=== PATIENT | female | born 1965 | race Caucasian/White ===

== ENCOUNTER → 2021-10-25 11:17 | Outpatient (BNVA) | payer OTHER, SELFPAY | DX: I10 Essential (primary) hypertension (principal); E78.5 Hyperlipidemia, unspecified; N39.0 Urinary tract infection, site not specified | CPT/HCPCS: 80053; 80061; 81000; 85025 ==

== ENCOUNTER → 2022-01-24 08:38 | Outpatient (BNVA) | payer OTHER, SELFPAY | PROVIDERS: PCP Clinical Nurse Specialist Adult Health; Visit Provider Clinical Nurse Specialist Adult Health | DX: E78.5 Hyperlipidemia, unspecified (principal); I10 Essential (primary) hypertension | CPT/HCPCS: 80061 ==

== ENCOUNTER 2022-04-20 04:21 | Emergency (ER) | payer OTHER, SELFPAY ==
[2022-04-20 04:23] VITALS: BP 161/110; PULSE 109; RESP 18; TEMP 37.3; O2SAT 97; BMI 29.7
--- NOTE | 2022-04-20 04:26 | W.ED.GENADLT ---
HPI - General Adult General: Chief complaint: Arrhythmia/Palpitations Stated complaint: PSVT Time Seen by Provider: 04/20/22 04:25 Source: patient and EMS Mode of arrival: EMS Limitations: no limitations History of Present Illness: 57-year-old female has a long history of SVT for over 25 years states that she started having palpitations tonight roughly 2 hours ago she states she tried to convert her self at home and was not able to she called EMS she was in SVT heart rate in the 180s they did give her 12 mg adenosine and she successfully converted in route she states she feels much improved she has no pain no shortness of breath denies any worsening improving factors. Associated symptoms: Reports palpitations; Deny dyspnea, headache(s), nausea, rash or vomiting Review of Systems Const: Denies: fever(s), chills, body aches or change in appetite Eyes: Denies: blurry vision or eye discomfort ENMT: Denies: throat pain or dental pain Card: Reports: palpitations Resp: Denies: dyspnea GI: Denies: abdominal pain, nausea, vomiting or diarrhea : Denies: dysuria Musc: Denies: neck pain or back pain Skin/Breast: Denies: rash Neuro: Denies: headache(s) Psych: Denies: depression Zain/Lymph: Denies: easy bruising All/Imm: Denies: urticaria PFSH ED PFSH: Medical History Essential hypertension Hyperlipidemia Major depression PSVT (paroxysmal supraventricular tachycardia) Surgical History Benign cyst of breast History of lipoma Family History Mother Degenerative arthritis Hypertension Hyperlipidemia Stroke mini strokes Father Cancer renal cancer with renal transplant Social History Smoking and tobacco status: never smoked Alcohol intake: current Alcohol intake frequency: 3 or more drinks per day Alcohol type: beer Marital status: Single 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 Additional social history: Moved here from [place], Has sibling and mother that lives herer Physical Exam Const: COMMON NORMALS: no acute distress, patient oriented x3 and healthy appearing HENMT: COMMON NORMALS: normocephalic and atraumatic HEAD & SCALP: normocephalic and atraumatic Eye: COMMON NORMALS: Equal, round and reactive pupils present and EOMs intact bilaterally PUPIL: Yes Equal, round and reactive pupils present Neck/C-Spine: COMMON NORMALS: full ROM and supple Chest: COMMONS NORMALS: normal inspection of the chest and normal palpation of entire chest wall Resp: COMMON NORMALS: normal respiratory effort, No retractions, No use of accessory muscles and clear to auscultation bilaterally AUSCULTATION: clear to auscultation bilaterally Cardio: COMMON NORMALS: regular rate, regular rhythm and No murmurs present (Cardio) RATE: regular rate RHYTHM: regular rhythm GI: COMMON NORMALS: Normal to inspection, nondistended, normoactive bowel sounds present, Soft to palpation, non-tender and no masses PALPATION: Yes Soft to palpation Extremity: COMMON NORMALS: normal to inspection and full ROM Neuro: COMMON NORMALS: patient oriented x3, moves all extremities and no focal motor deficits Psych: COMMON NORMALS: mental status grossly normal, Normal thought process present and cooperative THOUGHT PROCESS: Normal thought process present Skin: COMMON NORMALS: no rashes or lesions noted and no wounds GENERAL SKIN EXAM: no rashes or lesions noted Course Vital Signs: Vital signs: Vital Signs Temperature 99.1 F 04/20/22 04:23 Pulse Rate 110 H 04/20/22 04:29 Respiratory Rate 20 H 04/20/22 04:29 Blood Pressure 164/109 04/20/22 04:29 Pulse Oximetry 97 04/20/22 04:29 Oxygen Delivery Me thod 04/20/22 04:29 [facility] - General Adult Medical Decision Making Patient presents here with SVT she is converted in route she feels much improved here she is observed here she does have some hypertension we will start her on metoprolol daily we will get her cardiology follow-up she is return if worsening. EKG Data EKG 1: I personally reviewed and interpreted this EKG as follows: EKG interpretation date: 04/20/22 EKG interpretation time: 04:29 Interpretation: sinus tach hr [address] or t wave abnormalities qrs 71 qtc 386 Discharge Plan Discharge Patient Disposition: Home Clinical Impression: Supraventricular tachycardia Condition: Stable Prescriptions: New metoprolol succinate 25 mg tablet extended release 24 hr 25 mg PO DAILY Qty: 30 0RF No Action atorvastatin 10 mg tablet 10 mg PO DAILY Discharge Orders: Discharge ED (Routine); Ordered 04/20/22 Ordered By: Serena Chamorro Referrals: Luke Brown MD [Physician] - 1-3 days Kai Le NP [Primary Care Provider] - 1-3 days Discharge Diet: Advance as tolerated Discharge Activity: Resume usual activity Patient Instructions: Supraventricular Tachycardia (ED), Opioid Safety, Pain Management Coding Level of Care Code ED Senior Mechanical Design Engineer for Chg Fwd Exam Comprehensive
[2022-04-20 04:29] VITALS: BP 164/109; PULSE 110; RESP 20; O2SAT 97
[2022-04-20] MEDS: labetalol 5 mg/mL SDV 20mL 10 MG IVP (04:47)
[2022-04-20 05:44] VITALS: BP 128/86; PULSE 90; RESP 18; O2SAT 96
[2022-04-20 06:03] VITALS: BP 127/88; PULSE 91; RESP 18; O2SAT 96
--- NOTE | 2022-04-22 12:34 | DCPLANNER ---
Addendum entered by Yadi Reddy 07/02/22 08:05: Patient had a follow up appointment scheduled with heart care - patient did attend appointment Addendum entered by Yadi Reddy 04/24/22 13:21: Patient has a follow up appointment scheduled for , June 06, 2022 at 3:[address] Brown at [facility]. Clinic will call patient with appointment information. Original Note: call manager had message to schedule a follow up appointment for patient with cardiology. call manager sent patients information to the front office staff at [facility]. Patients information will be printed and reviewed. Clinic will call patient with appointment information.
== END 2022-04-20 06:07 | disposition home or self-care (01) ==
PROVIDERS: Emergency Provider Emergency Medicine; PCP Clinical Nurse Specialist Adult Health
DX: I47.1 Supraventricular tachycardia (principal); I10 Essential (primary) hypertension; E78.5 Hyperlipidemia, unspecified
CPT/HCPCS: 96374; 99284; J3490

== ENCOUNTER 2022-07-04 08:16 | Outpatient (CLI) | payer OTHER, SELFPAY ==
--- NOTE | 2022-07-04 | ECG_ITS ---
[facility] Test Date: 2022-07-04 Pat Name: Chinyere Sepulveda Department: Room: Gender: Female Section Repairer: Arina Weaver : 1965 Requested By: Luke Brown Order Number: [id number] Rene MD: Luke Brown M.D. Interpretive Statements NAME OF STUDY: TREADMILL STRESS TEST INDICATION: Palpitations, PROCEDURE: At the baseline, the patient's blood pressure was 128/76 with a heart rate of 78. The baseline electrocardiogram showed normal sinus rhythm with normal ST-Ts. The patient exercised for 4 minutes and 59 seconds on a standard Abran protocol. Patient attained a maximum heart rate of 143 beats per minute(87% of the maximum predicted heart rate) with a blood pressure at the peak exercise of mm Hg. The EKG at the peak exercise revealed no significant changes. Patient did not have any chest pain or any significant cardiac arrhythmias with the exercise During the recovery phase, there were no new changes. Blood pressure at the end of the recovery phase was 177/63 mm Hg with a heart rate of 87 per minute. CONCLUSION: 1. No significant EKG changes to treadmill exercise 2. No exercise-induced chest pain or cardiac arrhythmia 3. Impaired exercise tolerance, attained a maximum of 7.0 METs Electronically Signed On 07-05-2022 13:27:37 CDT by Luke Brown M.D. [id number]
--- NOTE | 2022-07-04 08:45 | USCV_ITS ---
Chinyere Sepulveda Age: 57 Gender: F : 1965 Exam Date: 07/04/2022 08:24 Ordering Phys: Luke Brown MD ([email or web address]) Technologist: Sherly Ferrari [place] [facility] [place]T BP: 120 / 70 HR: 65 Rhythm: Sinus Technical Quality: Adequate MEASUREMENTS (Male / Female) Normal Values 2D ECHO LV Diastolic Diameter PLAX 3.9 cm 4.2 - 5.9 / 3.9 - 5.3 cm LV Systolic Diameter PLAX 2.3 cm LV Chamber Size 3.5 cm IVS Diastolic Thickness 1.0 cm 0.6 - 1.0 / 0.6 - 0.9 cm IVS Systolic Thickness 1.2 cm LVPW Diastolic Thickness 1.5 cm 0.6 - 1.0 / 0.6 - 0.9 cm LVPW Systolic Thickness 1.7 cm RV Chamber Size 2.6 cm LVOT Diameter 2.0 cm LV Ejection Fraction 2D Teich 72.2 % LV Ejection Fraction MOD 2C 70.3 % LV Ejection Fraction 2C AL 73.5 % LA Diameter 2.9 cm LA Width 2.7 cm LA Height 3.9 cm RA Width 2.6 cm RA Height 3.2 cm Aorta at Sinotubular Diameter 2.2 cm IVC Diameter 1.8 cm M-MODE Aortic Annulus Diameter 2.7 cm LA Ao Ratio MM 1.3 MV E Point Septal Separation 0.3 cm DOPPLER AV Peak Velocity 168.0 cm/s LVOT Peak Velocity 117.0 cm/s AV Area Cont Eq vti 2.3 cm squared AV Area Cont Eq pk 2.3 cm squared MV Peak Velocity 96.0 cm/s MV Area PHT 3.5 cm squared Mitral E to A Ratio 1.2 MV E' Velocity 50.0 cm/s Mitral E to MV E' Ratio 8.2 Mitral E to LV E' Lateral Ratio 7.4 Mitral E to LV E' Septal Ratio 9.3 TR Peak Velocity 200.0 cm/s TR Peak Gradient 16.0 mmHg TR Mean Velocity 165.4 cm/s TR Mean Gradient 12.7 mmHg TR Velocity Time Integral 59.7 cm TV Peak E Velocity 53.0 cm/s Right Atrial Pressure 3.0 mmHg Pulmonary Artery Systolic Pressu 19.0 mmHg RV Acceleration Time 0.2 s RV Ejection Time 0.4 s RV AcT/ET 0.5 FINDINGS Left Ventricle Normal left ventricular size, systolic function and wall thickness, with no regional wall motion abnormalities. Left ventricular ejection fraction is estimated at 56 %. Normal diastolic function. Right Ventricle The right ventricle is normal in size and function. Right Atrium The right atrium is normal in size. Left Atrium The left atrium is normal in size. Mitral Valve Structurally normal mitral valve without significant stenosis or prolapse. Trace mitral regurgitation. Aortic Valve Thickened aortic valve. Moderate aortic valve calcification. No aortic valve stenosis. Trace aortic valve regurgitation. There is no aortic regurgitation. Tricuspid Valve Structurally normal tricuspid valve without significant stenosis or regurgitation. Pulmonary artery systolic pressure is normal. Pulmonic Valve Structurally normal pulmonic valve without significant stenosis. There is no pulmonic regurgitation. Pericardium Normal pericardium without effusion. Aorta Normal ascending aorta dimension. IVC The inferior vena cava appears normal. CONCLUSIONS 1-Normal left ventricular size, systolic function and wall thickness, with no regional wall motion abnormalities. Left ventricular ejection fraction is estimated at 56 %. Normal diastolic function. 2-Thickened aortic valve. Moderate aortic valve calcification. No aortic valve stenosis. Trace aortic valve regurgitation. There is no aortic regurgitation. 3-Structurally normal tricuspid valve without significant stenosis or regurgitation. Pulmonary artery systolic pressure is normal. 4-There is no pericardial effusion. 5-Right atrial pressure is around 5 mm of mercury. Philip More MD (Electronically Signed) Final Date: 04 July 2022 21:41 S
[2022-07-04 12:17] VITALS: BMI 29.7
[2022-07-04 12:25] VITALS: BP 177/63; PULSE 87
== END 2022-07-04 08:17 | disposition home or self-care (01) ==
LOC: RAD 11:55 → CDL 11:59
PROVIDERS: PCP Clinical Nurse Specialist Adult Health; Visit Provider Internal Medicine Cardiovascular Disease
DX: R07.9 Chest pain, unspecified (principal); I47.1 Supraventricular tachycardia; I08.2 Rheumatic disorders of both aortic and tricuspid valves; R00.2 Palpitations
CPT/HCPCS: 93017; 93306

== ENCOUNTER → 2022-07-22 07:18 | Outpatient (BNVA) | payer OTHER, SELFPAY | PROVIDERS: PCP Clinical Nurse Specialist Adult Health; Visit Provider Clinical Nurse Specialist Adult Health | DX: F33.1 Major depressive disorder, recurrent, moderate (principal); E78.5 Hyperlipidemia, unspecified | CPT/HCPCS: 80053; 80061 ==

== ENCOUNTER 2022-12-03 20:49 | Emergency (ER) | payer OTHER, SELFPAY ==
[2022-12-03 20:51] VITALS: BP 156/95; PULSE 86; RESP 16; TEMP 36.6; O2SAT 96; BMI 27.4
--- NOTE | 2022-12-03 20:54 | ECG_ITS ---
[facility] Test Date: 2022-12-03 Pat Name: Chinyere Sepulveda Department: Room: Gender: Female Kiss Mixer: : 1965 Requested By: Donte Peñaloza Order Number: [id number] Rene MD: Omid Khan M.D. Measurements Intervals [place] Rate: 85 P: 59 MA: 166 QRS: 42 QRSD: 77 T: 57 QT: 353 QTc: 422 Interpretive Statements SINUS RHYTHM No previous ECG available for comparison Electronically Signed On 12-04-2022 14:45:57 CDT by Omid Khan M.D. [id number] f
--- NOTE | 2022-12-03 21:08 | XRR_ITS ---
PROCEDURE INFORMATION: Exam: XR Chest Exam date and time: 12/03/2022 9:13 PM Age: 57 years old Clinical indication: Pain; Chest pressure; Patient HX: Palpitations TECHNIQUE: Imaging protocol: Radiologic exam of the chest. Views: 1 view. COMPARISON: No relevant prior studies available. FINDINGS: Tubes, catheters and devices: Overlying monitor leads noted. Lungs: Mild chronic appearing basilar reticular markings without focal infiltrate or consolidation. No pulmonary vascular congestion or edema. Pleural spaces: Unremarkable. No pleural effusion. No pneumothorax. Heart/Mediastinum: Unremarkable. No cardiomegaly. Bones/joints: Visualized osseous structures show no acute abnormality. XR/XR chest 1V portable [id number] IMPRESSION: No acute cardiopulmonary abnormality.
[2022-12-03 21:26] VITALS: BP 137/94; PULSE 92; RESP 22; O2SAT 95
--- NOTE | 2022-12-03 21:32 | W.ED.ARRPALP ---
HPI - Arrhythmia/Palpitations General: Chief Complaint: Arrhythmia/Palpitations Stated Complaint: HIGH HEART RATE Time Seen by Provider: 12/03/22 21:05 History of Present Illness: Presents to the ER by EMS with complaints of SVT. Patient reports she had a heart rate of 245 bpm for approximately 25 minutes. Patient does have a history of having SVT in the past. Per EMS they gave her 6 mg of adenosine and then 12 mg of adenosine after trying various Valsalva maneuvers with no luck. 12 mg of adenosine converted her to normal sinus rhythm in the 80s. Patient presents to the ER for further evaluation and treatment. Review of Systems General: Reports: 10 or more systems reviewed and unremarkable except in HPI and below PFSH ED PFSH: Medical History Essential hypertension Hyperlipidemia Major depression recurrent. paxil caused sedation. Celexa makes her spacy. prozac caused sedation. wellbutrin didn't help much. Has not tried lexapro, cymbalta or effexor. 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 Additional social history: Moved here from [place], Has sibling and mother that lives herer Physical Exam Const: COMMON NORMALS: no acute distress, average body habitus, patient oriented x3, no limitations, healthy appearing, alert and well nourished HENMT: COMMON NORMALS: normocephalic, atraumatic, hearing grossly normal bilaterally, external ears normal, Normal external nose present and moist oral mucous membranes HEAD & SCALP: normocephalic and atraumatic NOSE: Normal external nose present EXTERNAL EAR: Yes external ears normal Neck/C-Spine: COMMON NORMALS: full ROM, no lymphadenopathy, supple, no meningeal signs, no JVD and Thyroid normal THYROID: Thyroid normal Chest: COMMONS NORMALS: normal inspection of the chest and normal palpation of entire chest wall Resp: COMMON NORMALS: normal respiratory effort, No retractions, No use of accessory muscles and clear to auscultation bilaterally AUSCULTATION: clear to auscultation bilaterally Cardio: COMMON NORMALS: no JVD, regular rate, regular rhythm, S1 normal heart sound present, S2 normal heart sound present, No gallops present (Cardio), No clicks present (Cardio), No murmurs present (Cardio) and No rub (Cardio) RATE: regular rate RHYTHM: regular rhythm HEART SOUNDS: S1 normal heart sound present and S2 normal heart sound present GI: COMMON NORMALS: Normal to inspection, nondistended, normoactive bowel sounds present, Soft to palpation, non-tender, No hepatosplenomegaly present and no masses PALPATION: Yes Soft to palpation and Yes No hepatosplenomegaly present : COMMON NORMALS: Yes no CVA tenderness BLADDER/KIDNEY EXAM: Yes no CVA tenderness Back/Pelvis: COMMON NORMALS: no CVA tenderness Neuro: COMMON NORMALS: patient oriented x3 SENSORIUM/ORIENTATION: Yes alert MENINGEAL SIGNS: Yes no meningeal signs Course Vital Signs: Vital signs: Vital Signs Temperature 97.8 F 12/03/22 20:51 Pulse Rate 92 12/03/22 21:26 Respiratory Rate 22 H 12/03/22 21:26 Blood Pressure 137/94 12/03/22 21:26 Pulse Oximetry 95 12/03/22 21:26 Oxygen Delivery Me thod Room Air 12/03/22 21:26 MDM - Arrhythmia/Palpitations Medical Decision Making Patient presents to the ER by EMS with episode of SVT that required adenosine to convert back to sinus rhythm. Patient was worked up in normal fashion. All lab work was essentially benign patient was chest pain-free and SVT free while she was here. Patient will be discharged back to her PCP and to follow-up with her rope twisting machine operator for possible medication changes. Differential Diagnosis Likely supraventricular tachycardia; Unlikely palpitations, anxiety, sinus tachycardia, artial fibrillation, artial flutter, ventricular premature beats, ventricular tachycardia or WPW Medical Records I reviewed the patient's medical records. Lab Data I reviewed the patient's lab results. 12/03/22 21:37 12/03/22 21:37 Radiology Impressions Chest X-Ray 12/03/22 21:08 IMPRESSION: No acute cardiopulmonary abnormality. Laboratory Results WBC 9.7 10^3/uL (4.0-10.0) 12/03/22 21:37 RBC 4.31 10^6/uL (4.1-5.3) 12/03/22 21:37 Hgb 13.5 g/dL (11.5-15.3) 12/03/22 21:37 Hct 39.9 % (37.0-47.0) 12/03/22 21:37 MCV 92.6 fl (81-99) 12/03/22 21: MCH 31.3 pg (28.0-34.0) 12/03/22 21: MCHC 33.8 g/dL (30.0-36.0) 12/03/22 21: RDW 12.6 % (12.1-15.1) 12/03/22 21:37 Plt Count 376 10^3/cmm (130-400) 12/03/22 21:37 MPV 9.3 fL (7.4-10.4) 12/03/22 21:37 Neut % (Auto) 62.4 % 12/03/22 21:37 Lymph % (Auto) 29.5 % 12/03/22 21:37 Barrow % (Auto) 5.7 % 12/03/22 21:37 Eos % (Auto) 1.8 % 12/03/22 21:37 Baso % (Auto) 0.4 % 12/03/22 21:37 Neut # (Auto) 6.05 10^3/uL (1.8-7.7) 12/03/22 21:37 Lymph # (Auto) 2.9 10^3/uL (0.8-4.8) 12/03/22 21:37 [place]arrow # (Auto) 0.6 10^3/uL (0.2-0.9) 12/03/22 21:37 Eos # (Auto) 0.2 10^3/uL (0.0-0.8) 12/03/22 21:37 Baso # (Auto) 0.0 10^3/uL (0.0-0.1) 12/03/22 21: Nucleated RBC % (auto) 0 % 12/03/22 21:37 Nucleated RBCs # 0.0 /100WBC 12/03/22 21:37 Sodium 140 mmol/L (136-145) 12/03/22 21:37 Potassium 3.9 mmol/L (3.5-5.1) 12/03/22 21:37 Chloride 105 mmol/L (98-107) 12/03/22 21:37 Carbon Dioxide 24 mmol/L (22-29) 12/03/22 21:37 Anion Gap 14.9 (5-19) 12/03/22 21:37 BUN 21 mg/dL (6-20) H 12/03/22 21:37 Creatinine 0.8 mg/dL (0.5-0.9) 12/03/22 21:37 GFR Calculation 74.2 mL/min (90-130) L 12/03/22 21:37 Glucose 109 mg/dL (65-115) 12/03/22 21:37 Calculated Osmolality 294 mOsm/kg (285-295) 12/03/22 21:37 Calcium 9.2 mg/dL (8.5-10.5) 12/03/22 21:37 Magnesium 1.9 mg/dL (1.7-2.3) 12/03/22 21:37 Total Bilirubin 0.3 mg/dL (0.15-1.2) 12/03/22 21:37 AST 23 U/L (0-32) 12/03/22 21:37 ALT 25 U/L (0-33) 12/03/22 21:37 Alkaline Phosphatase 77 U/L (35-105) 12/03/22 21:37 Troponin T Baseline 12 ng/L (0-10) H 12/03/22 21:37 Total Protein 6.8 g/dL (6.6-8.7) 12/03/22 21:37 Albumin 4.3 g/dL (3.5-5.2) 12/03/22 21:37 Globulin 2.5 g/dL (1.3-4.6) 12/03/22 21:37 TSH 3.25 uIU/mL (0.27-4.20) 12/03/22 21:37 Urine Color Yellow (Yellow) 12/03/22 21:37 Urine Appearance Clear (CLEAR) 12/03/22 21:37 Urine pH 6 (5-7) 12/03/22 21:37 Ur Specific Phillips 1.015 (1.005-1.030) 12/03/22 21:37 Urine Protein Neg (Negative) 12/03/22 21:37 Urine Glucose (UA) Norm (Normal) 12/03/22 21:37 Urine Ketones Negative (Negative) 12/03/22 21:37 Urine Blood Neg (Negative) 12/03/22 21:37 Urine Nitrate Negative (Negative) 12/03/22 21:37 Urine Bilirubin Neg (Negative) 12/03/22 21:37 Urine Urobilinogen Norm mg/dL (Negative) 12/03/22 21:37 Ur Leukocyte Esterase Negative (Negative) 12/03/22 21:37 Urine Opiates Screen Negative ng/mL (Negative) 12/03/22 21:33 Ur Barbiturates Screen Negative ng/mL (Negative) 12/03/22 21:33 Ur Phencyclidine Scrn Negative ng/mL (Negative) 12/03/22 21:33 Ur Amphetamines Screen Negative ng/mL (Negative) 12/03/22 21:33 U Benzodiazepines Scrn Negative ng/mL (Negative) 12/03/22 21:33 Urine Cocaine Screen Negative ng/mL (Negative) 12/03/22 21:33 U Marijuana (THC) Screen Negative ng/mL (Negative) 12/03/22 21:33 EKG Data EKG 1: I personally reviewed and interpreted this EKG as follows: EKG interpretation date: 12/03/22 EKG interpretation time: 20:54 Prior EKG tracings: not available for review Interpretation: EKG showed normal sinus rhythm with ventricular rate 85 bpm, KS interval 166, QRS duration 77, QTc of 396, no ST-T wave changes Other EKG comments: Chest X-Ray 12/03/22 21:08 IMPRESSION: No acute cardiopulmonary abnormality. Discharge Plan Discharge Patient Disposition: Home Clinical Impression: PSVT (paroxysmal supraventricular tachycardia) Condition: Stable Prescriptions: No Action metoprolol succinate 25 mg tablet extended release 24 hr 12.5 mg PO DAILY glucosamine-chondroitin [Osteo Bi-Flex] 250-200 mg tablet 2 tab PO TID Rx Instructions: give after food/meal Centrum Complete 18-400 mg-mcg tablet 1 tab PO DAILY calcium citrate-vitamin D3 [Citracal + D Maximum] 315 mg-6.25 mcg (250 unit) tablet 1 tab PO DAILY coenzyme Q10 [Co Q-10] 200 mg capsule 200 mg PO DAILY collagen (bovine) 100 % powder in packet topical aspirin 81 mg tablet,delayed release (DR/EC) 81 mg PO DAILY PRN vilazodone 20 mg tablet 20 mg PO DAILY Qty: 30 6RF Rx Instructions: must administer with a meal/food atorvastatin 10 mg tablet 10 mg PO DAILY Qty: 90 3RF Discharge Orders: Discharge ED (Routine); Ordered 12/03/22 Ordered By: Donte Peñaloza Referrals: Kai Le NP [Primary Care Provider] - 7-10 days Patient Instructions: Supraventricular Tachycardia (ED) Activity Restrictions/Additional Instructions: Please follow-up with your family practice doctor in approximately 7 to 10 days or sooner please follow-up with your rope twisting machine operator on an as-needed basis for you may benefit from changes. Coding Level of Care Code ED Air Hose Coupler for Echo Noriega
[2022-12-03 21:39] LABS: Add Urine Microscopic? NO; Charge for UA Resulting for Rev
[2022-12-03 21:40] LABS: Basophils % 0.4 %; Eosinophils # 0.2 10^3/uL (0.0-0.8); Eosinophils % 1.8 %; Hematocrit 39.9 % (37.0-47.0); Hemoglobin 13.5 g/dL (11.5-15.3); Lymphocytes # 2.9 10^3/uL (0.8-4.8); Lymphocytes % 29.5 %; Mean Corpuscular HGB Conc 33.8 g/dL (30.0-36.0); Mean Corpuscular Hemoglobin 31.3 pg (28.0-34.0); Mean Corpuscular Volume 92.6 fl (81-99); Mean Platelet Volume 9.3 fL (7.4-10.4); Monocytes # 0.6 10^3/uL (0.2-0.9); Monocytes % 5.7 %; Neutrophils # 6.05 10^3/uL (1.8-7.7); Neutrophils % 62.4 %; Nucleated Red Blood Cells % 0 %; Platelet Count 376 10^3/cmm (130-400); Red Blood Count 4.31 10^6/uL (4.1-5.3); Red Cell Distribution Width 12.6 % (12.1-15.1); White Blood Count 9.7 10^3/uL (4.0-10.0)
[2022-12-03 21:42] LABS: Bilirubin Urine Neg (Negative); Blood Urine Neg (Negative); Glucose Urine UA Norm (Normal); Ketones Urine Negative (Negative); Leukocyte Esterase Urine Negative (Negative); Nitrate Urine Negative (Negative); Protein Urine Neg (Negative); Specific Gravity, Urine 1.015 (1.005-1.030); Urine Appearance Clear (CLEAR); Urine Color Yellow (Yellow); Urobilinogen Urine Norm (Negative); pH Urine 6 (5-7)
[2022-12-03 21:51] LABS: Amphetamines Screen Urine Negative (Negative); Barbiturates Screen Urine Negative (Negative); Benzodiazepines Screen Urine Negative (Negative); Cocaine Screen Urine Negative (Negative); Opiate Screen Urine Negative (Negative); PCP Screen Urine Negative (Negative); THC Screen Urine Negative (Negative)
[2022-12-03 22:01] LABS: Troponin(5th) Baseline 12 ng/L (0-10)
[2022-12-03 22:08] LABS: Alanine Aminotransferase 25 U/L (0-33); Albumin Level 4.3 g/dL (3.5-5.2); Alkaline Phosphatase 77 U/L (35-105); Anion Gap 14.9 (5-19); Aspartate Amino Transferase 23 U/L (0-32); Blood Urea Nitrogen 21 mg/dL (6-20); Calcium 9.2 mg/dL (8.5-10.5); Carbon Dioxide 24 mmol/L (22-29); Chloride 105 mmol/L (98-107); Globulin 2.5 g/dL (1.3-4.6); Glomerular Filtration Rate 74.2 mL/min (90-130); Glucose 109 mg/dL (65-115); Magnesium 1.9 mg/dL (1.7-2.3); Osmolality Calculated 294 mOsm/kg (285-295); Potassium 3.9 mmol/L (3.5-5.1); Sodium 140 mmol/L (136-145); Thyroid Stimulating Hormone 3.25 uIU/mL (0.27-4.20); Total Bilirubin 0.3 mg/dL (0.15-1.2); Total Protein 6.8 g/dL (6.6-8.7)
[2022-12-03 23:00] VITALS: BP 139/86; PULSE 87; O2SAT 98
== END 2022-12-03 23:02 | disposition home or self-care (01) ==
PROVIDERS: Emergency Provider Emergency Medicine; PCP Clinical Nurse Specialist Adult Health
DX: I47.1 Supraventricular tachycardia (principal); Z79.82 Long term (current) use of aspirin; I10 Essential (primary) hypertension; E78.5 Hyperlipidemia, unspecified
CPT/HCPCS: 71045; 80053; 80306; 81003; 83735; 84443; 84484; 85025; 93005; 99285

== ENCOUNTER → 2022-12-17 11:11 | Outpatient (BNVA) | payer OTHER, SELFPAY | PROVIDERS: PCP Clinical Nurse Specialist Adult Health; Visit Provider Clinical Nurse Specialist Adult Health | DX: E78.5 Hyperlipidemia, unspecified (principal); I10 Essential (primary) hypertension | CPT/HCPCS: 80048 ==

== ENCOUNTER 2023-02-05 08:03 | Outpatient (CLI) | payer OTHER, SELFPAY ==
--- NOTE | 2023-02-05 08:09 | MM_ITS ---
WS: [id number] SCREENING DIGITAL TOMOSYNTHESIS MAMMOGRAM WITH CAD HISTORY: Z00.00 - Encounter for general adult medical examination ... COMPARISON: 03/27/2021 and 08/04/2019 Bilateral CC and MLO with tomosynthesis views submitted. Synthetic mammography reviewed. Computer aid ed detection analyzed. Breast composition: The breasts are heterogeneously dense, which may obscure small masses. No suspici ous masses, microcalcifications or architectural distortion. IMPRESSION: MM/[place] [id number] BI-RADS: 1-Negative FOLLOW UP: 1 Year Follow-up
== END 2023-02-05 08:04 | disposition home or self-care (01) ==
PROVIDERS: PCP Clinical Nurse Specialist Adult Health; Visit Provider Clinical Nurse Specialist Adult Health
DX: Z13.1 Encounter for screening for diabetes mellitus (principal)
CPT/HCPCS: 77063; 77067

== ENCOUNTER 2023-04-25 08:39 | Emergency (ER) | payer OTHER, SELFPAY ==
[2023-04-25 08:41] VITALS: BP 105/80; PULSE 183; RESP 20; TEMP 36.7; O2SAT 95
--- NOTE | 2023-04-25 08:46 | ECG_ITS ---
[facility] Test Date: 2023-04-25 Pat Name: Chinyere Sepulveda Department: Room: Gender: Female Video News Editor: : 1965 Requested By: Mariusz Jose Order Number: [id number] López MD: Luke Brown M.D. Measurements Intervals [place] Rate: 183 P: 0 HI: 0 QRS: 50 QRSD: 81 T: 68 QT: 247 QTc: 431 Interpretive Statements SUPRAVENTRICULAR TACHYCARDIA MODERATE ST DEPRESSION [0.05+ mV ST DEPRESSION] CRITICAL TEST RESULT Compared to ECG 12/03/2022 20:54:46 ST (T wave) deviation now present Sinus rhythm no longer present Electronically Signed On 04-25-2023 16:37:21 KEEPER HELPER by Luke Brown M.D. [email or web address] [email or web address] TVcleveland clinic [facility].[employer]/store/NU/[id number] f
[2023-04-25] MEDS: adenosine 3 mg/mL SDV 2mL 12 MG IVP (08:52)
--- NOTE | 2023-04-25 08:58 | ECG_ITS ---
[facility] Test Date: 2023-04-25 Pat Name: Chinyere Sepulveda Department: Room: Gender: Female Sterile Preparation Technician: : 1965 Requested By: Mariusz Jose Order Number: [id number] Rene MD: Luke Brown M.D. Measurements Intervals [place] Rate: 93 P: 65 [place]: 132 QRS: 48 QRSD: 73 T: 57 QT: 350 QTc: 436 Interpretive Statements SINUS RHYTHM MODERATE ST DEPRESSION [0.05+ mV ST DEPRESSION] Compared to ECG 04/25/2023 08:46:38 Supraventricular tachycardia no longer present ST (T wave) deviation still present Electronically Signed On 04-25-2023 16:38:50 RETAIL SHIFT MANAGER by Luke Brown M.D. [email or web address].[email or web address]/[id number]
--- NOTE | 2023-04-25 08:59 | ED_ITS ---
HPI - Arrhythmia/Palpitations 2 General: Chief Complaint: Arrhythmia/Palpitations Stated Complaint: SVT Time Seen by Provider: 04/25/23 08:43 Source: patient Mode of arrival: ambulatory History of Present Illness: 58-year-old female who presents to the e mergency room with complaints of a rapid heart rate. She has had problems with SVT over the last year she is being scheduled to see electrophysiology for evaluation for ablation. She is currently on metoprolol she has not changed her dose or missed any doses recently. Began this morning. EMS had given her adenosine 12 mg twice with no response. Also tried vagal maneuvers prior to that with no response. In the past she has converted with adenosine. She has some moderate chest discomfort and shortness of breath with rapid heart rate. MD complaint: rapid heart beat and heart racing Onset (ago): minute(s) Duration: constant Severity: moderate Context: occurred during rest Arrhythmia history: SVT Associated symptoms: Deny anxiety, cough, diaphoresis, muscle cramps, nausea, paresthesias, pre-syncope, sense of impending doom, short of breath, syncope or vomiting Review of Systems 2 Const: Denies: fever(s), chills, fatigue, malaise or diaphoresis Card: Reports: chest pain and palpitations; Denies: syncope or pre-syncope Resp: Denies: dyspnea GI: Denies: nausea or vomiting : Denies: dysuria, urinary frequency or urinary urgency Musc: Denies: muscle cramps Skin/Breast: Denies: rash Psych: Denies: anxiety PFSH ED 2 PFSH: Medical History Major depression recurrent. paxil caused sedation. Celexa makes her spacy. prozac caused sedation. wellbutrin didn't help much. Lexapro caused sedation at 10 mg dose. Has not tried effexor. PSVT (paroxysmal supraventricular tachycardia) Hyperlipidemia Essential hypertension Surgical History Benign cyst of breast History of lipoma Family History Mother Degenerative arthritis Hypertension Hyperlipidemia Stroke mini strokes Father Cancer renal cancer with renal transplant Social History Smoking and tobacco/nicotine status: never used tobacco/nicotine Alcohol intake: former Year of sobriety/quit date alcohol: 2022 Former alcohol use details: frequent Substance/Drug Use: never Additional social history: Moved here from [place], Has sibling and mother that lives herer Marital status: Single 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 Physical Exam 2 Const: COMMON NORMALS: no acute distress GENERAL APPEARANCE: cooperative and comfortable ORIENTATION/CONSCIOUSNESS: Yes awake, Yes oriented to person, Yes oriented to place and Yes oriented to time HENMT: COMMON NORMALS: normocephalic, atraumatic and hearing grossly normal bilaterally HEAD & SCALP: normocephalic and atraumatic Resp: COMMON NORMALS: normal respiratory effort, No retractions, No use of accessory muscles and clear to auscultation bilaterally AUSCULTATION: clear to auscultation bilaterally Cardio: COMMON NORMALS: regular rhythm and No murmurs present (Cardio) R ATE: tachycardic RHYTHM: regular rhythm GI: COMMON NORMALS: Soft to palpation and No hepatosplenomegaly present A USCULTATION: Yes normoactive bowel sounds PALPATION: Yes Soft to palpation, No Tenderness to palpation present (GI), No Guarding due to palpation present (GI) and Yes No hepatosplenomegaly present Extremity: COMMON NORMALS: normal to inspection, capillary refill normal, no clubbing, cyanosis or edema, no calf tenderness and no pedal edema Neuro: SENSORIUM/ORIENTATION: Yes oriented to person, Yes oriented to place and Yes oriented to time Skin: COMMON NORMALS: no rashes or lesions noted GENERAL SKIN EXAM: no rashes or lesions noted Course 2 Vital Signs: Vital signs: Vital Signs Temperature 98.1 F 04/25/23 08:41 Pulse Rate 77 04/25/23 12:15 Respiratory Rate 16 04/25/23 12:15 Blood Pressure 130/66 04/25/23 12:15 Pulse Oximetry 98 04/25/23 12:15 Oxygen Delivery Me thod Room Air 04/25/23 10:35 MDM - Arrhythmia/Palpitations Medical Decision Making Supraventricular tachycardia converted after single dose of adenosine in the emergency room. Patient received 2 doses in the field with no response monitor strips from EMS reviewed and no slowing in all in her rhythm but she converted to the first attempt here. She is otherwise doing well at this time she has follow-up scheduled with cardiology. Continue Medical Records I reviewed the patient's medical records. Lab Data I reviewed the patient's lab results. 04/25/23 08:50 04/25/23 08:50 Laboratory Results WBC 14.82 10^3/uL (3.29-11.43) H 04/25/23 08:50 RBC 5.01 10^6/uL (3.85-5.65) 04/25/23 08:50 Hgb 15.60 g/dL (11.27-16.99) 04/25/23 08:50 Hct 46.6 % (36-47) 04/25/23 08:50 MCV 93.0 fl (85-98) 04/25/23 08:50 MCH 31.1 pg (27-33) 04/25/23 08:50 MCHC 33.5 g/dL (30-55) 04/25/23 08:50 RDW 12.3 % (12.1-15.1) 04/25/23 08:50 Plt Count 484 10^3/cmm (157-399) H 04/25/23 08:50 MPV 9.4 fL (7.4-10.4) 04/25/23 08:50 Neut % (Auto) 57.3 % 04/25/23 08:50 Lymph % (Auto) 30.2 % 04/25/23 08:50 Spencer % (Auto) 11.3 % 04/25/23 08:50 Eos % (Auto) 0.5 % 04/25/23 08:50 Baso % (Auto) 0.4 % 04/25/23 08:50 Neut # (Auto) 8.50 10^3/uL (1.8-7.7) H 04/25/23 08:50 Lymph # (Auto) 4.5 10^3/uL (0.8-4.8) 04/25/23 08:50 Spencer # (Auto) 1.7 10^3/uL (0.2-0.9) H 04/25/23 08:50 Eos # (Auto) 0.1 10^3/uL (0.0-0.8) 04/25/23 08:50 Baso # (Auto) 0.1 10^3/uL (0.0-0.1) 04/25/23 08:50 Nucleated RBC % (auto) 0 % 04/25/23 08:50 Nucleated RBCs # 0.0 /100WBC 04/25/23 08:50 Sodium 140 mmol/L (136-145) 04/25/23 08:50 Potassium 3.9 mmol/L (3.5-5.1) 04/25/23 08:50 Chloride 98 mmol/L (98-107) 04/25/23 08:50 Carbon Dioxide 20 mmol/L (22-29) L 04/25/23 08:50 Anion Gap 25.9 (5-19) H 04/25/23 08:50 BUN 16 mg/dL (6-20) 04/25/23 08:50 Creatinine 1.2 mg/dL (0.5-0.9) H 04/25/23 08:50 GFR Calculation 46.3 mL/min (90-130) L 04/25/23 08:50 Glucose 156 mg/dL (65-115) H 04/25/23 08:50 Calculated Osmolality 294 mOsm/kg (285-295) 04/25/23 08:50 Calcium 10.4 mg/dL (8.5-10.5) 04/25/23 08:50 Total Bilirubin 0.6 mg/dL (0.15-1.2) 04/25/23 08:50 AST 31 U/L (0-32) 04/25/23 08:50 ALT 29 U/L (0-33) 04/25/23 08:50 Alkaline Phosphatase 111 U/L (35-105) H 04/25/23 08:50 Total Protein 8.3 g/dL (6.6-8.7) 04/25/23 08:50 Albumin 4.6 g/dL (3.5-5.2) 04/25/23 08:50 Globulin 3.7 g/dL (1.3-4.6) 04/25/23 08:50 Influenza Type A Ag negative (Negative) 04/25/23 09:40 Influenza Type B Ag negative (Negative) 04/25/23 09:40 SARS-CoV-2 Ag (Rapid) positive (Negative) H 04/25/23 09:40 No radiology studies performed this visit Discharge Plan Discharge Patient Disposition: Home Clinical Impression: Supraventricular tachycardia, COVID-19, PSVT (paroxysmal supraventricular tachycardia) Condition: Stable Prescriptions: No Action metoprolol succinate 25 mg tablet extended release 24 hr 25 mg PO BEDTIME Centrum Complete 18-400 mg-mcg tablet 1 tab PO DAILY PRN (Reason: unknown) calcium citrate-vitamin D3 [Citracal + D Maximum] 315 mg-6.25 mcg (250 unit) tablet 1 tab PO DAILY PRN (Reason: unknown) coenzyme Q10 [Co Q-10] 200 mg capsule 200 mg PO DAILY PRN (Reason: unknown) Excedrin Migraine 250-250-65 mg Tablet 1 tab PO Q6H PRN (Reason: headache/fever) atorvastatin 10 mg tablet 10 mg PO BEDTIME duloxetine 60 mg capsule,delayed release(DR/EC) 60 mg PO QAM Discharge Orders: Discharge ED (Routine); Ordered 04/25/23 Ordered By: Mariusz Hudson Referrals: Kai Le, PROPERTY VALUER [Primary Care Provider] - Discharge Diet: Usual diet Discharge Activity: Increase activity as tolerated Patient Instructions: Supraventricular Tachycardia (ED), COVID-19 (Coronavirus Disease 2019) (ED), Opioid Safety, Pain Management Activity Restrictions/Additional Instructions: ER discharge You are seen today with rapid heart rate. Also mentions some shortness of breath cough respiratory congestion COVID-19 was positive. Your vital signs are stable and your SVT was corrected with a dose of adenosine. Continue your current medications and follow-up with your customer development manager as soon as you are able if your breathing worsens return to the emergency room or your primary care doctor. Coding Level of Care Code ED Bag Making Machine Tender for Echo Noriega
[2023-04-25 09:09] LABS: Basophils # 0.1 10^3/uL (0.0-0.1); Basophils % 0.4 %; Eosinophils # 0.1 10^3/uL (0.0-0.8); Eosinophils % 0.5 %; Hematocrit 46.6 % (36-47); Lymphocytes # 4.5 10^3/uL (0.8-4.8); Lymphocytes % 30.2 %; Mean Corpuscular HGB Conc 33.5 g/dL (30-55); Mean Corpuscular Hemoglobin 31.1 pg (27-33); Mean Platelet Volume 9.4 fL (7.4-10.4); Monocytes # 1.7 10^3/uL (0.2-0.9); Monocytes % 11.3 %; Neutrophils % 57.3 %; Nucleated Red Blood Cells % 0 %; Platelet Count 484 10^3/cmm (157-399); Red Blood Count 5.01 10^6/uL (3.85-5.65); Red Cell Distribution Width 12.3 % (12.1-15.1); White Blood Count 14.82 10^3/uL (3.29-11.43)
[2023-04-25 09:25] LABS: Alanine Aminotransferase 29 U/L (0-33); Albumin Level 4.6 g/dL (3.5-5.2); Alkaline Phosphatase 111 U/L (35-105); Anion Gap 25.9 (5-19); Aspartate Amino Transferase 31 U/L (0-32); Blood Urea Nitrogen 16 mg/dL (6-20); Calcium 10.4 mg/dL (8.5-10.5); Carbon Dioxide 20 mmol/L (22-29); Chloride 98 mmol/L (98-107); Globulin 3.7 g/dL (1.3-4.6); Glomerular Filtration Rate 46.3 mL/min (90-130); Glucose 156 mg/dL (65-115); Osmolality Calculated 294 mOsm/kg (285-295); Potassium 3.9 mmol/L (3.5-5.1); Sodium 140 mmol/L (136-145); Total Bilirubin 0.6 mg/dL (0.15-1.2); Total Protein 8.3 g/dL (6.6-8.7)
[2023-04-25 10:02] LABS: Influenza A by IFA negative (Negative); Influenza B by IFA negative (Negative)
[2023-04-25 10:16] LABS: SARS Covid-2 Antigen positive (Negative)
[2023-04-25 10:35] VITALS: BP 119/69; PULSE 83; RESP 12; O2SAT 95
[2023-04-25 10:45] VITALS: BP 125/67; PULSE 82; RESP 14; O2SAT 95
[2023-04-25] MEDS: sodium chloride 0.9% 1,000 ML 999 ML IV (10:52)
[2023-04-25 11:30] VITALS: BP 125/69; PULSE 77; RESP 10; O2SAT 100
[2023-04-25 12:15] VITALS: BP 130/66; PULSE 77; RESP 16; O2SAT 98
== END 2023-04-25 12:57 | disposition home or self-care (01) ==
PROVIDERS: Emergency Provider Family Medicine; PCP Clinical Nurse Specialist Adult Health
DX: I47.19 Other supraventricular tachycardia (principal); U07.1 COVID-19; I10 Essential (primary) hypertension; E78.5 Hyperlipidemia, unspecified
CPT/HCPCS: 80053; 85025; 87426; 87804; 93005; 96374; 99285; J0153; J7030

== ENCOUNTER → 2023-07-17 10:44 | Outpatient (BNVA) | payer OTHER, SELFPAY | PROVIDERS: PCP Clinical Nurse Specialist Adult Health; Visit Provider Nurse Practitioner Family | DX: Z98.890 Other specified postprocedural states (principal); Z86.79 Personal history of other diseases of the circulatory system | CPT/HCPCS: 93005 ==

== ENCOUNTER 2023-08-08 13:33 | Outpatient (CLI) | payer OTHER, SELFPAY ==
--- NOTE | 2023-08-08 13:38 | US_ITS ---
WS: [id number] US pelvic complete* [id number] HISTORY: LOWER QUADRANT PAIN COMPARISON: None available. Only transabdominal imaging is submitted. Patient was unable to tolerate transvaginal exam. Uterus: 8.1 cm x 4.0 cm x 2.9 cm. Normal size anteverted uterus. No fibroid or mass. Endometrium: Not well seen. No adnexal mass. No free fluid. A few images through the urinary bladder demonstrate hypoechoic soft tissue along the posterior wall of the bladder. No change in position during the examination. This may be debris or an early neoplasm . IMPRESSION: 1. Extremely limited evaluation of the pelvic structures. Patient was unable to tolerate transvagina l imaging. 2. Increased echogenic material in the bladder just to the LEFT of midline. Early uroepithelial neop lasm or sediment within the differential. Recommend additional imaging of the urinary bladder to eval uate for vascularity and movement of this debris.
== END 2023-08-08 13:34 | disposition home or self-care (01) ==
LOC: RAD 13:34
PROVIDERS: PCP Clinical Nurse Specialist Adult Health; Visit Provider Nurse Practitioner
DX: R10.30 Lower abdominal pain, unspecified (principal)
CPT/HCPCS: 76856

== ENCOUNTER 2023-08-21 07:44 | Outpatient (CLI) | payer OTHER, SELFPAY ==
--- NOTE | 2023-08-21 07:50 | MR_ITS ---
WS: [id number] MRI LEFT SHOULDER NONCONTRAST TECHNIQUE: Sagittal T2, coronal T1, T2 and proton density imaging. Axial gradient PDE imaging. CLINICAL INFORMATION: L SHOULDER PAIN COMPARISON: None. FINDINGS: Moderate degenerative arthritis AC joint with a small amount of fluid. Mild downsloping acromion with subacromial spurring. Slight impingement on the distal supraspinatus. Mild narrowing of the subacrom ial space. Chronic thinning of the distal supraspinatus which appears intact. Tendinopathy distal sup raspinatus. Normal infraspinatus. Normal teres minor. Normal subscapularis. Biceps tendon appears intact within the bicipital groove. Fluid along the biceps tendon sheath. Intra-articular biceps tendon appears int act. Degenerative fraying of the glenoid labrum. Advanced degenerative narrowing of the glenohumeral articulation with hypertrophic spurring along the humeral head and neck. Biceps labral anchor appears intact. Subchondral cystic change involving the glenoid. MR/MR shoulder LT wo con* [id number] IMPRESSION: 1. Moderate degenerative arthritis AC joint with small amount of fluid. Subacr omial spurring slightly impinges the distal supraspinatus. 2. Chronic thinning of the distal supraspinatus with tendinopathy. 3. Rotator cuff is otherwise intact. 4. Normal biceps tendon in the bicipital groove. Normal intra-articular biceps tendon. 5. Advanced degenerative narrowing of the glenohumeral articulation with hyper trophic spurring along the medial humeral head and neck. Subchondral cystic yoshi nge involving the glenoid.
--- NOTE | 2023-08-21 07:50 | CTR_ITS ---
PROCEDURE INFORMATION: Exam: CT Chest Without Contrast; Diagnostic Exam date and time: 08/21/2023 8:57 AM Age: 58 years old Clinical indication: Abnormal findings; Abnormal radiologic exam of lung or chest; Additional info: Abnormal chest xray, PT having mri too TECHNIQUE: Imaging protocol: Diagnostic computed tomography of the chest without contrast. Radiation optimization: All CT scans at this facility use at least one of these dose optimization techniques: automated exposure control; mA and/or kV adjustment per patient size (includes targeted exams where dose is matched to clinical indication); or iterative reconstruction. COMPARISON: CR XR chest 1V portable [id number] 03/12/2022 21:13 RADIATION DOSE METRICS: Total DLP (mGy-cm): 421.28 FINDINGS: Lungs: Unremarkable. No consolidation. No masses. Pleural spaces: Unremarkable. No pneumothorax. No pleural effusion. Heart: Unremarkable. No cardiomegaly. No pericardial effusion. Coronary arteries: Trace coronary artery calcification. Lymph nodes: Unremarkable. No enlarged lymph nodes. Vasculature: Unremarkable. No aortic aneurysm. Bones/joints: Mild chronic degenerative disc disease of the midthoracic spine. No acute osseous lesions are identified. Soft tissues: Unremarkable. CT/CT chest [facility] [id number] IMPRESSION: 1. Clear lungs 2. Trace calcified coronary artery disease
== END 2023-08-21 07:45 | disposition home or self-care (01) ==
LOC: RAD 07:45
PROVIDERS: PCP Nurse Practitioner; Visit Provider Nurse Practitioner
DX: M25.512 Pain in left shoulder (principal); M19.012 Primary osteoarthritis, left shoulder; I25.10 Atherosclerotic heart disease of native coronary artery without angina pectoris
CPT/HCPCS: 71250; 73221

== ENCOUNTER 2023-10-02 13:38 | Outpatient (CLI) | payer OTHER, SELFPAY ==
--- NOTE | 2023-10-02 14:00 | CT_ITS ---
WS: [id number] CT PELVIS NONCONTRAST HISTORY: Abnormal ultrasound of bladder/pelvis TECHNIQUE: Contiguous imaging is performed of the pelvis without contrast. Coronal and sagittal refor mats are reviewed. All CT scans at [facility] use at least one of these dose optimization madhavi hniques: automated exposure control; mA and/or kV adjustment per patient size (includes targeted exam s where dose is matched to clinical indication); or iterative reconstruction. DLP: 343.95 mGy.cm COMPARISON: Pelvic ultrasound 08/08/2023 Moderate distention of the urinary bladder. There is no intraluminal filling defect appreciated. No s tones. Uroepithelial neoplasm would not be readily evident without IV contrast. The uterus is very mildly prominent and lobular. Area of very slight increased density along the ante rior myometrium measures 2.6 x 3.7 cm. This is consistent with a small fibroid that was not necessari ly evident on the transvaginal ultrasound. In retrospect there is probably an area of shadowing with some calcification. Mild sigmoid diverticulosis. No definite diverticulitis. There is no GI tract obstruction. No free fl uid or adenopathy. Normal appendix. CT/CT pelvis wo con [id number] IMPRESSION: 1. Normally distended urinary bladder. Mass or uroepithelial neoplasm would be difficult to exclude without IV contrast. For further evaluation of the urinar y bladder consider follow-up urinary bladder ultrasound with color Doppler. Cys toscopy may also be of benefit. 2. Sigmoid diverticulosis without acute diverticulitis. 3. Anterior myometrial fibroid 2.6 x 3.7 cm.
== END 2023-10-02 13:39 | disposition home or self-care (01) ==
LOC: RAD 13:39
PROVIDERS: PCP Family Medicine Adult Medicine; Visit Provider Family Medicine Adult Medicine
DX: R93.89 Abnormal findings on diagnostic imaging of other specified body structures (principal); K57.90 Diverticulosis of intestine, part unspecified, without perforation or abscess without bleeding; D25.1 Intramural leiomyoma of uterus
CPT/HCPCS: 72192

== ENCOUNTER 2023-11-03 20:00 | Outpatient (CLI) | payer OTHER, SELFPAY | END 2023-11-03 20:01 | disposition home or self-care (01) | LOC: SLEEP 22:46 | PROVIDERS: PCP Family Medicine Adult Medicine; Visit Provider Nurse Practitioner | DX: G47.33 Obstructive sleep apnea (adult) (pediatric) (principal) | CPT/HCPCS: 95810 ==

== ENCOUNTER → 2023-11-05 09:07 | Outpatient (BNVA) | payer OTHER, SELFPAY | PROVIDERS: PCP Family Medicine Adult Medicine; Referring Provider Nurse Practitioner; Visit Provider Specialist | DX: M19.012 Primary osteoarthritis, left shoulder | CPT/HCPCS: 73030; 99204 ==

== ENCOUNTER → 2024-01-21 08:16 | Outpatient (BNVA) | payer OTHER, SELFPAY | PROVIDERS: PCP Family Medicine Adult Medicine; Visit Provider Specialist | DX: M19.012 Primary osteoarthritis, left shoulder (principal) | CPT/HCPCS: 73030 ==

== ENCOUNTER 2024-02-03 20:00 | Outpatient (CLI) | payer OTHER, SELFPAY | END 2024-02-03 20:01 | disposition home or self-care (01) | LOC: SLEEP 22:29 | PROVIDERS: PCP Family Medicine Adult Medicine; Visit Provider Nurse Practitioner | DX: G47.33 Obstructive sleep apnea (adult) (pediatric) (principal) | CPT/HCPCS: 95811 ==

== ENCOUNTER 2024-03-24 06:18 | Outpatient (CLI) | payer OTHER, SELFPAY ==
--- NOTE | 2024-03-24 | ECG_ITS ---
Gelesis Test Date: 2024-03-24 Pat Name: Chinyere Sepulveda Department: Room: Gender: Female Pet Counselor: : 1965 Requested By: Nallely Jameson Order Number: [id number] López MD: Jose Mcclellan M.D. Interpretive Statements EXERCISE MIBI EXERCISE DATA: The patient was exercised by Abran protocol. Baseline heart rate was 66 beats per minute. Baseline blood pressure was 148/96 millimeters of mercury. Maximal predicted heart rate was 163 beats per minute. Maximum heart rate achieved was 153 which was 93% of the maximum predicted heart rate. Maximum blood pressure was 212/69 millimeters of mercury. Total exercise time was 8 minutes. Maximum METs achieved was 10.2. The reason for ending the test was completion of protocol. The patient complained of shortness of breath during the stress test, which then resolved at the end of the test. ELECTROCARDIOGRAM: BASELINE: Showed sinus rhythm, normal axis, no significant ST-T changes at the baseline noted. [] EXERCISE: At the peak exercise level, [] Non-specific ST-T changes suggestive of ischemia noted. [] RECOVERY: During the recovery period, heart rate dropped appropriately. No significant ST-T changes in the recovery suggestive of ischemia noted. [] CONCLUSION: 1. Exercise capacity is good. 2. Heart rate response was appropriate 3. Blood pressure response was hypertensive 4. Symptoms not suggestive of ischemia. 5. Electrocardiogram portion of the stress test was not suggestive of ischemia. 6. Nuclear scan will be documented separately. Electronically Signed On 03-24-2024 18:21:30 STONE LATHE OPERATOR by Jose Mcclellan M.D. [email or web address]
[2024-03-24 06:35] VITALS: BMI 30.4
--- NOTE | 2024-03-24 06:41 | NMCV_ITS ---
NM wendy perf SPECT r/s* [id number] Chinyere Sepulveda Age: 58 Gender: F : 1965 Exam Date: 03/24/2024 07:31 Ordering Phys: Nallely Jameson Technologist: CHETAN Weston Exam Location: [facility] Indications: CP STRESS TEST [facility] IMAGE PROTOCOL Rest/Stress 1 Exercise Day Radiopharmaceutical Dose (mCi) Administration Site Administered by Rest: Tc-99m 10.8 IV Shira Nisreen, CUSTOMER SERVICE SECURITY OFFICER Sestamibi Stress:Tc-99m 32.4 IV Shira Nisreen, CUSTOMER SERVICE SECURITY OFFICER Sestamibi Rest: 24-Mar-2024 60 [employer] 630 Stress: 24-Mar-2024 30 [employer] 630 SPECT RESULTS Technical Quality: Good Raw Data Analysis: Normal Image Corrections: No attenuation or motion correction applied Summed Stress Score: 0 Summed Rest Score: 8 Summed Difference Score: 0 PERFUSION FINDINGS SPECT images demonstrate homogeneous tracer distribution throughout the myocardium. FUNCTIONAL RESULTS (calculated via Gated SPECT) Stress Image LV EF (%): 81 Stress EDV (mL):0 TID: 0.94 Stress ESV (mL):12 FUNCTIONAL FINDINGS: There is normal left ventricular systolic function. IMPRESSIONS 1. Normal myocardial perfusion imaging with no evidence of ischemia 2. LV systolic function is normal Jose Mcclellan MD (Electronically Signed) Final Date: 24 March 2024 11:28 S
[2024-03-24 08:43] VITALS: BP 164/85; PULSE 83
== END 2024-03-24 06:19 | disposition home or self-care (01) ==
PROVIDERS: PCP Family Medicine Adult Medicine; Visit Provider Nurse Practitioner Family
DX: I20.89 Other forms of angina pectoris (principal)
CPT/HCPCS: 36415; 78452; 93017; A9500

== ENCOUNTER → 2024-04-25 14:10 | Outpatient (BNVA) | payer OTHER, SELFPAY | PROVIDERS: PCP Family Medicine Adult Medicine; Visit Provider Registered Nurse Neonatal Intensive Care | DX: M25.511 Pain in right shoulder (principal); S42.251A Displaced fracture of greater tuberosity of right humerus, initial encounter for closed fracture; W19.XXXA Unspecified fall, initial encounter | CPT/HCPCS: 73030 ==

== ENCOUNTER → 2024-04-28 10:26 | Outpatient (BNVA) | payer OTHER, SELFPAY | PROVIDERS: PCP Family Medicine Adult Medicine; Referring Provider Registered Nurse Neonatal Intensive Care; Visit Provider Specialist | DX: S42.254A Nondisplaced fracture of greater tuberosity of right humerus, initial encounter for closed fracture; W01.0XXA Fall on same level from slipping, tripping and stumbling without subsequent striking against object, initial encounter | CPT/HCPCS: 73030 ==

== ENCOUNTER 2024-04-28 15:15 | Outpatient (CLI) | payer OTHER, SELFPAY | END 2024-04-28 15:16 | disposition home or self-care (01) | LOC: SPT 15:17 | PROVIDERS: PCP Family Medicine Adult Medicine; Visit Provider Specialist | DX: Z46.89 Encounter for fitting and adjustment of other specified devices (principal); S42.294D Other nondisplaced fracture of upper end of right humerus, subsequent encounter for fracture with routine healing; X58.XXXD Exposure to other specified factors, subsequent encounter | CPT/HCPCS: L3670 ==

== ENCOUNTER → 2024-05-12 13:54 | Outpatient (BNVA) | payer OTHER, SELFPAY | PROVIDERS: PCP Family Medicine Adult Medicine; Visit Provider Registered Nurse Neonatal Intensive Care | DX: M25.511 Pain in right shoulder (principal) | CPT/HCPCS: 73030 ==

== ENCOUNTER → 2024-05-19 09:13 | Outpatient (BNVA) | payer OTHER, SELFPAY | PROVIDERS: PCP Family Medicine Adult Medicine; Visit Provider Specialist | DX: S42.251D Displaced fracture of greater tuberosity of right humerus, subsequent encounter for fracture with routine healing (principal); X58.XXXD Exposure to other specified factors, subsequent encounter | CPT/HCPCS: 73030 ==

== ENCOUNTER → 2024-06-14 14:20 | Outpatient (BNVA) | payer OTHER, SELFPAY | PROVIDERS: PCP Family Medicine Adult Medicine; Visit Provider Specialist | DX: S42.251D Displaced fracture of greater tuberosity of right humerus, subsequent encounter for fracture with routine healing (principal); X58.XXXD Exposure to other specified factors, subsequent encounter | CPT/HCPCS: 73030 ==

== ENCOUNTER → 2024-07-12 15:48 | Outpatient (BNVA) | payer OTHER, SELFPAY | PROVIDERS: PCP Family Medicine Adult Medicine; Visit Provider Specialist | DX: S42.251D Displaced fracture of greater tuberosity of right humerus, subsequent encounter for fracture with routine healing (principal); X58.XXXD Exposure to other specified factors, subsequent encounter; Z98.890 Other specified postprocedural states | CPT/HCPCS: 73030 ==

== ENCOUNTER → 2024-07-13 10:28 | Outpatient (BNVA) | payer OTHER, SELFPAY | PROVIDERS: PCP Family Medicine; Visit Provider Family Medicine | DX: Z00.00 Encounter for general adult medical examination without abnormal findings (principal); R73.03 Prediabetes | CPT/HCPCS: 80053; 80061; 83036; 84443; 85025 ==

== ENCOUNTER 2024-07-16 08:45 | Outpatient (CLI) | payer OTHER, SELFPAY ==
--- NOTE | 2024-07-16 09:00 | MM_ITS ---
WS: [id number] BILATERAL SCREENING DIGITAL TOMOSYNTHESIS MAMMOGRAM WITH CAD HISTORY: screening COMPARISON: 02/05/2023, 03/27/2021 Bilateral CC and MLO views with tomosynthesis and synthetic mammography submitted. Computer aided detection analyzed. Breast composition: The breasts are extremely dense, which lowers the sensitivity of mammography. No suspicious masses, microcalcifications or architectural distortion. Benign scattered calcifications in each breast. MM/MM scr tomosynthesis [id number] IMPRESSION: BI-RADS: 2 - Benign FOLLOW UP: 1 Year Follow-up
== END 2024-07-16 08:46 | disposition home or self-care (01) ==
PROVIDERS: PCP Family Medicine; Visit Provider Family Medicine
DX: Z12.31 Encounter for screening mammogram for malignant neoplasm of breast (principal); R92.343 Mammographic extreme density, bilateral breasts; R92.1 Mammographic calcification found on diagnostic imaging of breast
CPT/HCPCS: 77063; 77067

== ENCOUNTER 2024-07-19 14:47 | Outpatient (RCR) | payer OTHER, SELFPAY | END 2024-07-19 23:59 | disposition home or self-care (01) | LOC: SPT 14:47 | PROVIDERS: PCP Family Medicine; Visit Provider Specialist | DX: S42.251D Displaced fracture of greater tuberosity of right humerus, subsequent encounter for fracture with routine healing (principal); X58.XXXD Exposure to other specified factors, subsequent encounter | CPT/HCPCS: 97161 ==

== ENCOUNTER 2024-07-20 06:00 | Outpatient (RCR) | payer OTHER, SELFPAY | END 2024-08-18 23:59 | disposition home or self-care (01) | LOC: SPT 06:00 | PROVIDERS: PCP Family Medicine; Visit Provider Specialist | DX: S42.251D Displaced fracture of greater tuberosity of right humerus, subsequent encounter for fracture with routine healing (principal); X58.XXXD Exposure to other specified factors, subsequent encounter | CPT/HCPCS: 97110 ==

== ENCOUNTER 2024-08-19 06:00 | Outpatient (RCR) | payer OTHER, SELFPAY | END 2024-09-18 23:59 | disposition home or self-care (01) | LOC: SPT 06:00 | PROVIDERS: PCP Family Medicine; Visit Provider Specialist | DX: S42.251D Displaced fracture of greater tuberosity of right humerus, subsequent encounter for fracture with routine healing (principal); X58.XXXD Exposure to other specified factors, subsequent encounter | CPT/HCPCS: 97110; 97164 ==

== ENCOUNTER → 2025-02-04 09:27 | Outpatient (BNVA) | payer OTHER, SELFPAY | PROVIDERS: PCP Family Medicine; Visit Provider Family Medicine | DX: Z12.4 Encounter for screening for malignant neoplasm of cervix (principal) | CPT/HCPCS: 87624 ==